=== PATIENT | male | born 1990 ===

== ENCOUNTER 2017-11-30 11:00 | Emergency (ER) | payer OTHER ==
[2017-11-30] MEDS ORDERED: ACETAMINOPHEN 500 MG 500 MG TAB PO ONE (11:25)
[2017-11-30] MEDS ORDERED: ACETAMINOPHEN 500 MG 500 MG TAB ONE (11:26)
[2017-11-30 11:27] VITALS: RESP 20; TEMP 96.8
[2017-11-30 12:34] VITALS: BP 125/86; O2SAT 99
[2017-11-30 13:23] VITALS: PULSE 55
== END 2017-11-30 13:00 | disposition home or self-care (01) ==
LOC: ED 11:00
DX: S93.402A Sprain of unspecified ligament of left ankle, initial encounter (principal); W19.XXXA Unspecified fall, initial encounter
CPT/HCPCS: 29515; 73610; 99283; L4350